=== PATIENT | female | born 1965 | race Caucasian/White ===

== ENCOUNTER 2016-06-20 08:02 | Day surgery (SDC) | payer OTHER ==
[~2016-06-20 08:02] MED LIST: Buffered Lidocaine 1% SYR 3ML* 3 ML/SYR SYRINGE INTRADERM ONE
[2016-06-20] MEDS ORDERED: ceFAZolin 2 GM PREMIX (*) 2 GM/50 ML BAG IVPB ONE ×2 (08:17→15:00)
[2016-06-20 09:50] LABS: Hematocrit 41 % (35-47); Hemoglobin 13.9 g/dl (12.0-16.0); Mean Corpuscular HGB Conc 34 g/dl (31-36); Mean Corpuscular Hemoglobin 30 pg (27-31); Mean Corpuscular Volume 88 fL (80-97); Mean Platelet Volume 7 um3 (7.4-10.4); Red Cell Distribution Width 14 % (10.5-15); White Blood Count 8.5 10^3/ul (3.5-10.8)
[2016-06-20] MEDS ORDERED: Lidocaine 2% PF* 10 ML AMP ONE (10:12)
[2016-06-20] MEDS ORDERED: fentaNYL* 50 MCG/ML 2 ML VIAL (100 MCG VIAL) ONE ×3 (10:35→12:44)
[2016-06-20] MEDS ORDERED: Propofol* 10 MG/ML 20 ML BTL IV PUSH ONE (10:35)
[2016-06-20] MEDS ORDERED: Lidocaine 2% PF * 5 ML VIAL ONE (10:35)
[2016-06-20] MEDS ORDERED: Ketorolac INJ* 30 MG/ML 1 ML VIAL ONE (10:41)
[2016-06-20] MEDS ORDERED: Dexamethasone IV* 4 MG/ML 1 ML (4 MG) ONE (10:41)
[2016-06-20] MEDS ORDERED: fentaNYL* 50 MCG/ML 2 ML VIAL (100 MCG VIAL) IV PRN (11:13)
[2016-06-20] MEDS ORDERED: Ondansetron INJ* 2 MG/ML VIAL IV PRN (11:13)
[2016-06-20] MEDS ORDERED: Bupivacaine 0.5% W/EPI SDV* 30 ML VIAL ONE (13:06)
[2016-06-20] MEDS ORDERED: oxyCODONE TAB* 5 MG TAB ONE (13:40)
[2016-06-20] MEDS ORDERED: Ondansetron INJ* 2 MG/ML VIAL ONE (13:57)
[2016-06-20 14:38] VITALS: BP 148/69
--- NOTE | 2016-06-21 04:02 | OP ---
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 OPERATIVE PROCEDURE: Left subtalar fusion with allograft and DBX bone putty and repair of posterior tibial tendon with the flexor digitorum longus transfer. DESCRIPTION OF PROCEDURE: The patient was taken to the operating room where longitudinal lateral incision was made over the sinus tarsi and sized down through the ligament of the sinus tarsi and lamina marketing associate was used to open the subtalar joint curette and a power samantha was used to prepare the joint for arthrodesis. We crushed some allograft bone with some DBX putty, placed it along the subtalar joint and then pinned this with a 7.3 mm cannulated screw from the heel up to the neck of the talus with the washer at the heel. Good compression and correction of the hindfoot valgus was obtained. The midfoot appeared to be relatively flexible at this point. So, the osteotomy at the mid foot was not performed. A longitudinal incision was made over the posterior tibial tendon centered on the navicular. The tendon itself was thickened and nodular. This was debrided in a longitudinal fashion with a 15 blade and transferred the FDL tendon up from the depth of the posterior tibial tendon using a 0 whipstitch suture at the anchor of the tendon bringing it plantar to dorsal through a 5 mm drill at the medial navicular. We then side sowed into the posterior tibial tendon using a 2-0 Vicryl running suture. We then repaired the retinaculum behind the malleolus with interrupted 2-0 Vicryl suture subcutaneous 2-0 Vicryl and prateek for the skin. Compression dressing plaster splint applied. [id number]/[facility] #: [id number] MTDD
--- NOTE | 2016-06-21 07:43 | RAD ---
INDICATION: Left foot subtalar fusion and first metatarsal osteotomy, M 25.572 COMPARISONS: June 22, 2016 TECHNIQUE: Fluoroscopy was provided for a surgical procedure. Total fluoroscopy time is: 3.6 seconds FINDINGS: Spot images demonstrate subtalar fusion IMPRESSION: FLUOROSCOPY WAS PROVIDED FOR A SURGICAL PROCEDURE CPT II Codes: 6045F
== END 2016-06-20 14:48 | disposition home or self-care (01) ==
LOC: OR 08:02
PROVIDERS: ATTEND Orthopaedic Surgery
DX: M21.072 Valgus deformity, not elsewhere classified, left ankle (principal); M67.874 Other specified disorders of tendon, left ankle and foot; Z68.36 Body mass index [BMI] 36.0-36.9, adult; E11.9 Type 2 diabetes mellitus without complications; J45.909 Unspecified asthma, uncomplicated
CPT/HCPCS: 36415; 76000; 85025; 88304; A9270-GY; C1713; C1776; C9359; J0690; J1100; J1885; J2001; J2405; J2704; J3010

== ENCOUNTER 2016-12-05 09:56 | Day surgery (SDC) | payer OTHER ==
[~2016-12-05 09:56] MED LIST changes: +Buffered Lidocaine 0.9% SYRIN* 5 ML/SYR SYRINGE INTRADERM ONE; -Buffered Lidocaine 1% SYR 3ML* 3 ML/SYR SYRINGE INTRADERM ONE; +Dexamethasone IV* 4 MG/ML 1 ML (4 MG) IV SLOW PU ONE; +Famotidine IV* 10 MG/ML 2 ML (20 mg) IV ONE
[2016-12-05] MEDS ORDERED: Buffered Lidocaine 0.9% SYRIN* 5 ML/SYR SYRINGE ONE (09:57)
[2016-12-05] MEDS ORDERED: Famotidine IV* 10 MG/ML 2 ML (20 mg) ONE (09:57)
[2016-12-05] MEDS ORDERED: ceFAZolin 2 GM PREMIX(*) 2 GM/50 ML BAG IVPB ONE (09:57)
[2016-12-05] MEDS ORDERED: Dexamethasone IV* 4 MG/ML 1 ML (4 MG) ONE (09:57)
[2016-12-05] MEDS ORDERED: Ketorolac INJ* 30 MG/ML 1 ML VIAL IV PRN (10:08)
[2016-12-05] MEDS ORDERED: fentaNYL* 50 MCG/ML 2 ML VIAL (100 MCG VIAL) IV PRN (10:08)
[2016-12-05] MEDS ORDERED: HYDROcodone/ACETAMIN 5-325 MG* 1 TAB PO PRN (10:08)
[2016-12-05] MEDS ORDERED: PROCHLORPERAZINE INJ 5 MG/ML 2 ML VIAL IV PRN (10:08)
[2016-12-05] MEDS ORDERED: Bupivacaine 0.5% SDV PF* 30 ML VIAL ONE (10:13)
[2016-12-05] MEDS ORDERED: Lidocaine 2% PF* 10 ML AMP ONE (10:13)
[2016-12-05] MEDS ORDERED: fentaNYL* 50 MCG/ML 2 ML VIAL (100 MCG VIAL) ONE ×2 (10:48→11:51)
[2016-12-05] MEDS ORDERED: Midazolam* 1 MG/ML 5 ML VIAL (5 MG) ONE (10:48)
[2016-12-05] MEDS ORDERED: Lidocaine 2% PF * 5 ML VIAL ONE (10:54)
[2016-12-05] MEDS ORDERED: Propofol* 10 MG/ML 20 ML BTL IV PUSH ONE (10:54)
[2016-12-05] MEDS ORDERED: Ondansetron INJ* 2 MG/ML VIAL ONE (11:11)
[2016-12-05] MEDS ORDERED: oxyCODONE/Acetamin 5/325 MG* TAB ONE (11:51)
[2016-12-05] MEDS ORDERED: Ketorolac INJ* 30 MG/ML 1 ML VIAL ONE (11:51)
[2016-12-05] MEDS: oxyCODONE/Acetamin 5/325 MG* TAB PO PRN ×2 (12:40→12:41)
[2016-12-05 12:46] VITALS: BP 133/72
--- NOTE | 2016-12-06 13:43 | OP ---
DATE OF OPERATION: 12/05/16 - [facility] DATE OF : 61 SURGEON: Michael Wall MD. RECYCLING MANAGER: Diana Koch PA-C. ANESTHESIOLOGIST: Toño Bravo MD ANESTHESIA: General PRE-OP DIAGNOSIS: Painful left subtalar screw located at the left heel. POST-OP DIAGNOSIS: Painful left subtalar screw located at the left heel. OPERATIVE PROCEDURE: Removal of left heel screw and washer. DESCRIPTION OF PROCEDURE: The patient was taken to the operating room where we placed the guide pin through the cannulated screw shaft. We then created a 1- cm incision down to the head of the screw. This was removed with appropriate cannulated screwdriver and the washer was removed with a small rongeur. We irrigated it thoroughly, closing with interrupted 2-0 Prolene sutures. Compression dressing applied. [id number]/[facility] #: [id number] MTDD
== END 2016-12-05 13:01 | disposition home or self-care (01) ==
LOC: OR 09:56
PROVIDERS: ATTEND Orthopaedic Surgery
DX: T84.84XA Pain due to internal orthopedic prosthetic devices, implants and grafts, initial encounter (principal); Y79.2 Prosthetic and other implants, materials and accessory orthopedic devices associated with adverse incidents; J45.909 Unspecified asthma, uncomplicated; K21.9 Gastro-esophageal reflux disease without esophagitis; F41.9 Anxiety disorder, unspecified; R56.9 Unspecified convulsions; Z88.1 Allergy status to other antibiotic agents
CPT/HCPCS: 88300; A9270-GY; J0690; J1100; J1885; J2001; J2250; J2405; J2704; J3010

== ENCOUNTER 2018-02-26 07:17 | Day surgery (SDC) | payer OTHER ==
[~2018-02-26 07:17] MED LIST changes: -Dexamethasone IV* 4 MG/ML 1 ML (4 MG) IV SLOW PU ONE; +Metoclopramide TAB* 10 MG PO ONE
[2018-02-26] MEDS ORDERED: Buffered Lidocaine 0.9% SYRIN* 5 ML/SYR SYRINGE ONE (07:25)
[2018-02-26] MEDS ORDERED: ceFAZolin 2 GM PREMIX in ORs 2 GM/50 ML BAG IVPB ONE (07:25)
[2018-02-26] MEDS ORDERED: Famotidine IV* 10 MG/ML 2 ML (20 mg) ONE (07:25)
[2018-02-26] MEDS ORDERED: KETAMINE HCL* 50 MG/ML 10 ML VIAL ONE (08:28)
[2018-02-26] MEDS ORDERED: Cisatracurium* 2 MG/ML MDV 5 ML ONE (08:28)
[2018-02-26] MEDS ORDERED: Dexamethasone IV* 4 MG/ML 1 ML (4 MG) ONE (08:28)
[2018-02-26] MEDS ORDERED: fentaNYL* 50 MCG/ML 2 ML VIAL (100 MCG VIAL) ONE ×2 (08:28→11:09)
[2018-02-26] MEDS ORDERED: Ondansetron INJ* 2 MG/ML VIAL ONE (08:28)
[2018-02-26] MEDS ORDERED: Ketorolac INJ* 30 MG/ML 1 ML VIAL ONE (08:28)
[2018-02-26] MEDS ORDERED: Propofol* 10 MG/ML 20 ML BTL IV PUSH ONE (08:28)
[2018-02-26] MEDS ORDERED: Lidocaine 2% PF * 5 ML VIAL ONE (08:28)
[2018-02-26] MEDS ORDERED: Midazolam* 1 MG/ML 5 ML VIAL (5 MG) ONE (08:29)
[2018-02-26] MEDS ORDERED: Bupivacaine 0.5% SDV PF* 30ML VIAL ONE ×2 (09:10→09:23)
[2018-02-26] MEDS ORDERED: Lidocaine 2% PF* 10 ML AMP ONE (09:23)
[2018-02-26] MEDS ORDERED: Ondansetron INJ* 2 MG/ML VIAL IV PRN (10:19)
[2018-02-26] MEDS ORDERED: DiMENhydriNATE IV* 50 MG/ML VIAL IV PUSH PRN (10:19)
[2018-02-26] MEDS ORDERED: Naloxone* 0.4 MG/ML 1 ML VIAL IV PRN (10:19)
[2018-02-26] MEDS ORDERED: Levalbuterol 0.63MG/3ML NEB* UNIT OF USE INH PRN (10:19)
[2018-02-26] MEDS ORDERED: HYDROmorphone INJ1* 1 MG/ML SYRINGE ONE ×2 (10:25→11:09)
[2018-02-26] MEDS ORDERED: Neostigmine Methylsulfate* 1 MG/ML 10 ML VIAL (1 mg/ml) ONE (10:40)
[2018-02-26] MEDS ORDERED: Glycopyrrolate IV* 0.2 MG/ML 1 ML VIAL ONE (10:40)
[2018-02-26] MEDS ORDERED: Labetalol IV* 5 MG/ML 20 ML VIAL ONE (10:52)
[2018-02-26] MEDS: fentaNYL* 50 MCG/ML 2 ML VIAL (100 MCG VIAL) IV PRN ×2 (11:10→12:03)
[2018-02-26] MEDS: HYDROmorphone INJ1* 1 MG/ML SYRINGE IV PRN ×2 (11:18→11:52)
[2018-02-26] MEDS ORDERED: Enalaprilat IV* 1.25 MG/ML 2 ML VIAL (2.5 MG) ONE (12:20)
[2018-02-26] MEDS ORDERED: oxyCODONE/Acetamin 5/325 MG* TAB ONE ×2 (12:28→12:58)
[2018-02-26] MEDS: oxyCODONE/Acetamin 5/325 MG* TAB PO PRN ×2 (12:32→12:59)
[2018-02-26 13:49] VITALS: BP 158/78
--- NOTE | 2018-02-27 07:56 | RAD ---
CPT II Codes: G9500 INDICATION: Subtalar fusion TECHNIQUE: Intraoperative fluoroscopy was provided during revision of left foot subtalar fusion surgery. FINDINGS: A single lateral spot film depicts 2 medullary screws overlying the calcaneus and talus. Fluoroscopy time: 4.6 seconds IMPRESSION: As above.
--- NOTE | 2018-02-27 08:09 | OP ---
DATE OF OPERATION: 02/26/18 [facility] DATE OF : 61 ATTENDING SURGEON: Michael Wall MD USER SUPPORT ANALYST: Diana Koch PA-C. PRE-OP DIAGNOSIS: Left subtalar fusion, nonunion. POST-OP DIAGNOSIS: Left subtalar fusion, nonunion. OPERATIVE PROCEDURE: Revision left subtalar fusion with tibial bone graft. DESCRIPTION OF PROCEDURE: The patient was taken to the operating room where we opened up the lateral incision just dorsal to the peroneal tendons. We opened up the sinus tarsi area with a rongeur and a cob elevator takedown of the nonunion. We freshened the subtalar surfaces with a power samantha and harvested some cancellous bone. A 4 cm incision was made obliquely at Gerdy's tubercle. We opened up the lateral cortex with a power samantha and then a curette was used to harvest the cancellous bone. This was placed along the subtalar joint as well as some of the DBX bone putty. Fixation consisted of paired Arthrex 6.7 mm cannulated screws with washers from the base of the calcaneus up into the body of the talus. Good compression was obtained. The tibia bone graft site then was paced with some cancellous graft, some Vicryl sutures used to close the periosteum and the subcu and then a Monocryl for the skin. The foot was closed with interrupted Prolene sutures for the heal, 2-0 Vicryl for the subcu, and nylon for the skin. A compression dressing, plaster splint applied. [id number]/[facility] #: [id number] MTDD
== END 2018-02-26 14:02 | disposition home or self-care (01) ==
LOC: OR 07:17
PROVIDERS: ATTEND Orthopaedic Surgery
DX: M96.0 Pseudarthrosis after fusion or arthrodesis (principal); M76.822 Posterior tibial tendinitis, left leg; Z88.1 Allergy status to other antibiotic agents; G40.89 Other seizures; J45.909 Unspecified asthma, uncomplicated; K21.9 Gastro-esophageal reflux disease without esophagitis; M19.90 Unspecified osteoarthritis, unspecified site; F41.9 Anxiety disorder, unspecified; R42 Dizziness and giddiness
CPT/HCPCS: 76001; A9270-GY; C1713; C1776; C9359; J0690; J1100; J1170; J1885; J2001; J2250; J2405; J2704; J2710; J3010

== ENCOUNTER → 2019-01-24 05:45 | Day surgery (SDC) | payer OTHER ==
[~2019-01-24 05:45] MED LIST changes: +Acetaminophen TAB* 325 MG ONE; +Acetaminophen TAB* 325 MG PO ONE; -Buffered Lidocaine 0.9% SYRIN* 5 ML/SYR SYRINGE INTRADERM ONE; +Buffered Lidocaine 1% SYRIN* 1 ML/SYRINGE INTRADERM ONE; +Bupivacaine 0.25% SDV PF* 10 ML VIAL INJ ONE; +Cisatracurium* 2 MG/ML MDV 5 ML ONE; +Dexamethasone IV* 4 MG/ML 1 ML (4 MG) ONE; +DiMENhydriNATE IV* 50 MG/ML VIAL IV PUSH PRN; +DiMENhydriNATE IV* 50 MG/ML VIAL ONE; +Famotidine IV* 10 MG/ML 2 ML (20 mg) ONE; +Gabapentin CAP(*) 300 MG ONE; +Gabapentin CAP(*) 300 MG PO ONE; +HYDROcodone/ACETAMIN 5-325 MG* 1 TAB ONE; +HYDROcodone/ACETAMIN 5-325 MG* 1 TAB PO PRN; +Ketorolac INJ* 30 MG/ML 1 ML VIAL ONE; +Labetalol IV* 5 MG/ML 20 ML VIAL ONE; +Lactated Ringers 1000 ML Bag* 1,000 ML IV SCH; +Levalbuterol 0.63MG/3ML NEB* UNIT OF USE INH PRN; +Lidocaine 2% PF * 5 ML VIAL ONE; -Metoclopramide TAB* 10 MG PO ONE; +Midazolam* 1 MG/ML 2 ML VIAL (2 MG) ONE; +Naloxone* 0.4 MG/ML 1 ML VIAL IV PRN; +Ondansetron INJ* 2 MG/ML VIAL IV PRN; +Ondansetron INJ* 2 MG/ML VIAL ONE; +Propofol* 10 MG/ML 20 ML BTL ONE; +Succinylcholine* 20 MG/ML 10 ML VIAL ONE; +ceFAZolin 2 GM PREMIX in ORs 2 GM/50 ML BAG ONE; +diPHENhydraMINE IV* 50 MG/ML 1 ml VIAL (BENADRYL) IV PRN; +fentaNYL* 50 MCG/ML 2 ML VIAL (100 MCG VIAL) ONE
--- NOTE | 2019-01-24 08:39 | BRIEFOPN ---
Brief Operative/Procedure Note - Operation Details Pre-Op Diagnosis: gallbladder polyp Post-Op Diagnosis: same Procedures: laparoscopic cholecystectomy Surgeon(s)/Proceduralists: Noé. Assist: SUSY Perdomo Anesthesia: GET Estimated Blood Loss: < 20 ml; Fluids: 1000 ml RL Findings: as above Specimen(s)/Culture(s) Description: gallbladder Complications: none
[2019-01-24] MEDS: fentaNYL* 50 MCG/ML 2 ML VIAL (100 MCG VIAL) IV PRN ×2 (09:23→09:39)
[2019-01-24 10:48] VITALS: BP 137/79
--- NOTE | 2019-01-24 11:32 | OP ---
OPERATIVE REPORT: DATE OF OPERATION: 01/24/19 DATE OF : 61 SERVICE: General Surgery. ATTENDING SURGEON: Miri Umanzor MD CRIMINAL JUSTICE PROFESSOR: SUSY Hinojosa ANESTHESIOLOGIST: Angy Pimentel MD ANESTHESIA: General endotracheal anesthesia. PRE-OP DIAGNOSIS: Gallbladder polyp. POST-OP DIAGNOSIS: Gallbladder polyp. OPERATIVE PROCEDURE: Laparoscopic cholecystectomy. ESTIMATED BLOOD LOSS: Minimal, less than 10 cc. SPECIMENS: Gallbladder. INDICATIONS FOR SURGERY: Ms. Velásquez is a very pleasant 53-year-old female who was found to have a 9-mm gallbladder polyp during a workup for right upper quadrant abdominal pain. Given that its size approached 1 cm, which is the size where a laparoscopic cholecystectomy is recommended, she gave informed consent for undergoing a laparoscopic cholecystectomy. She understood the risks , benefits and alternatives. She understood that risks included, but were not limited to bleeding, infection, injury to nearby structures including the common bile duct and other possible intraoperative events. She agreed and wished to proceed. DESCRIPTION OF PROCEDURE: The patient was brought back to the operating room and placed on the operating room table in a supine position. Sequential compression devices were placed on bilateral lower extremities for DVT prophylaxis. Antibiotics with the Ancef was administered prior to incision. General endotracheal anesthesia was induced. The patient's left arm was tucked and her abdomen was prepped and draped in a normal sterile fashion. Prior to the anesthesia, a time-out was performed verifying the patient's name, MR number , and procedure to be performed. Next, 0.25% Marcaine was infiltrated into the left upper quadrant at Luther's point. A small incision was made and a Veress needle was advanced through the abdominal wall into the intraabdominal cavity. A saline drop test was performed which was positive, therefore insufflation was connected to the Veress needle and insufflation was obtained to 15 mmHg. After this was done, a 5- mm incision was made just above the umbilicus and then the abdomen was entered using a 5-mm trocar with Optiview technique, visualizing all layers of the abdominal wall. Next, examination of the abdominal cavity showed that there was no injury that had been made upon entry with the Veress needle, therefore the Veress needle was removed. The remaining 3 trocars were placed under direct visualization. After administering 0.25% Marcaine, a 12-mm trocar was placed just to the right of the falciform and 2 additional 5-mm trocars were placed in the right midclavicular line in the right mid abdomen. After this, the gallbladder was grasped at its fundus and elevated over the liver. The gallbladder appeared grossly normal- it is was not distended, not thick walled and had no adhesions to it. Using electrocautery, the peritoneum on either side of the gallbladder was divided and with great care, the cystic duct and cystic artery were skeletonized. The critical view was obtained visualizing liver bed between both of these structures and then once this was confirmed, the cystic duct and cystic artery both clipped twice proximally and once distally and then divided. Once the structures were divided, the gallbladder was taken off the liver bed using electrocautery. It was placed into an EndoCatch bag and removed from the abdomen as specimen. Examination of the liver bed showed that it was hematostatic and that all of the clips still remained on the cystic duct and cystic artery. Given that there was no spillage of bile, no irrigation was performed. The 12-mm trocar site was closed using 0-Vicryl suture on a suture passer and after this was done, all the trocars were removed under direct visualization. Desufflation was obtained and then skin was closed using interrupted 4-0 Monocryl sutures. Sterile dressing was then placed. The patient's anesthesia was reversed and she was taken to the PACU in stable condition. At the end of the case, all counts were correct and I was present through the entirety of the case. CC: Benji West MD [id number]/[facility] #: [id number] MTDChel
== END | disposition home or self-care (01) ==
LOC: OR 05:45
PROVIDERS: ATTEND Surgery
DX: K81.1 Chronic cholecystitis (principal); I49.3 Ventricular premature depolarization; K21.9 Gastro-esophageal reflux disease without esophagitis; F41.8 Other specified anxiety disorders
CPT/HCPCS: 88304; A9270-GY; J0330; J0690; J1100; J1240; J1885; J2250; J2405; J2704; J3010; J3490

== ENCOUNTER → 2019-03-11 12:35 | Day surgery (SDC) | payer OTHER ==
[~2019-03-11 12:35] MED LIST changes: -Acetaminophen TAB* 325 MG PO ONE; -Bupivacaine 0.25% SDV PF* 10 ML VIAL INJ ONE; -Cisatracurium* 2 MG/ML MDV 5 ML ONE; -Dexamethasone IV* 4 MG/ML 1 ML (4 MG) ONE; -DiMENhydriNATE IV* 50 MG/ML VIAL IV PUSH PRN; -DiMENhydriNATE IV* 50 MG/ML VIAL ONE; -Famotidine IV* 10 MG/ML 2 ML (20 mg) IV ONE; -Famotidine IV* 10 MG/ML 2 ML (20 mg) ONE; -Gabapentin CAP(*) 300 MG ONE; -Gabapentin CAP(*) 300 MG PO ONE; -HYDROcodone/ACETAMIN 5-325 MG* 1 TAB ONE; -HYDROcodone/ACETAMIN 5-325 MG* 1 TAB PO PRN; -Ketorolac INJ* 30 MG/ML 1 ML VIAL ONE; -Labetalol IV* 5 MG/ML 20 ML VIAL ONE; -Levalbuterol 0.63MG/3ML NEB* UNIT OF USE INH PRN; -Lidocaine 2% PF * 5 ML VIAL ONE; +Lidocaine 2% PF* 10 ML AMP ONE; +Midazolam* 1 MG/ML 5 ML VIAL (5 MG) ONE; -Ondansetron INJ* 2 MG/ML VIAL IV PRN; -Ondansetron INJ* 2 MG/ML VIAL ONE; -Succinylcholine* 20 MG/ML 10 ML VIAL ONE; -ceFAZolin 2 GM PREMIX in ORs 2 GM/50 ML BAG ONE; +ceFAZolin 2 GM in NS PREMIX(*) 2 GM/100 ML BAG IVPB ONE; -diPHENhydraMINE IV* 50 MG/ML 1 ml VIAL (BENADRYL) IV PRN; +oxyCODONE TAB* 5 MG TAB ONE
[2019-03-11 14:41] VITALS: BP 149/89
--- NOTE | 2019-03-11 22:48 | OP ---
DATE OF OPERATION: 03/11/19 - [facility] DATE OF : 61 SURGEON: Michael Wall MD. HITCH TECHNICIAN: Rickie Garcia PA-C. PRE-OP DIAGNOSIS: Painful hardware, left heel. POST-OP DIAGNOSIS: Painful hardware, left heel. OPERATIVE PROCEDURE: Removal of heel screws, left foot. DESCRIPTION OF PROCEDURE: The patient was taken to the operating room, where MAC anesthesia was performed around the left heel. With the ankle Esmarch inflated, we made a small 2 cm transverse incision at the left posterior plantar heel. Through this incision, we were able to cannulate the heads of the retained screws with the original guide pin. We then used the cannulated headset screwdriver to remove the screws as well as the washers. We irrigated thoroughly, closing with Monocryl and Prolene interrupted sutures for the skin and a compression dressing applied. [id number]/[facility] #: [id number] MTDD
== END | disposition home or self-care (01) ==
LOC: OR 12:35
PROVIDERS: ATTEND Orthopaedic Surgery
DX: T84.84XA Pain due to internal orthopedic prosthetic devices, implants and grafts, initial encounter (principal); Y83.1 Surgical operation with implant of artificial internal device as the cause of abnormal reaction of the patient, or of later complication, without mention of misadventure at the time of the procedure; M25.572 Pain in left ankle and joints of left foot; H81.10 Benign paroxysmal vertigo, unspecified ear; G40.009 Localization-related (focal) (partial) idiopathic epilepsy and epileptic syndromes with seizures of localized onset, not intractable, without status epilepticus
CPT/HCPCS: 81025; 88300; A9270-GY; J0690; J2001; J2250; J2704; J3010